=== PATIENT | female | born 1960 | race Caucasian/White ===

== ENCOUNTER 2019-04-06 09:13 | Outpatient (CLI) | payer MEDICARE, OTHER, SELFPAY ==
--- NOTE | ~2019-04-06 | US_ITS ---
EXAMINATION: US renal BI EXAM DATE: 04/06/2019 10:20 INDICATION: Abnormal kidney test. TECHNIQUE: Multiple grayscale and Doppler images of the kidneys were obtained (by a technologist who performed the scan) and subsequently reviewed. There is no prior study for comparison. FINDINGS: There is bilateral renal cortical thinning. Right kidney: There is lobular contour and echogenicity. It measures 12.6 x 4.1 x 1.2 centimeters. There are no focal renal lesions identified. There is no hydronephrosis. Left kidney: There is lobular contour and echogenicity. It measures 11.9 x 5.2 x 4.9 centimeters. T here are no focal renal lesions identified. There is no hydronephrosis. Bladder unremarkable. Prevoid bladder volume was 584 mL, postvoid bladder volume 9 mL. IMPRESSION: 1. Bilateral renal cortical thinning, atrophy. 2. Otherwise unremarkable exam. Reviewed, dictated and finalized at location A. NO ACCOUNTANT
== END 2019-04-06 09:14 | disposition home or self-care (01) ==
LOC: ANHIMG 09:23
PROVIDERS: Visit Provider Internal Medicine Nephrology
DX: R94.4 Abnormal results of kidney function studies (principal); E11.65 Type 2 diabetes mellitus with hyperglycemia; I10 Essential (primary) hypertension; G47.33 Obstructive sleep apnea (adult) (pediatric); M19.90 Unspecified osteoarthritis, unspecified site; K21.9 Gastro-esophageal reflux disease without esophagitis
CPT/HCPCS: 76775